=== PATIENT | female | born 1950 | race Caucasian/White ===

== ENCOUNTER 2023-10-07 13:41 | Emergency (ER) | payer MEDICARE, MEDICAID ==
[~2023-10-07] VITALS: Ht 154.9 cm; Wt 54.4 kg
[2023-10-07 13:52] VITALS: BP 122/85; PULSE 88; RESP 18; TEMP 98.1; O2SAT 98
[2023-10-07] MEDS ORDERED: IBUP-1842 PO (14:11)
[2023-10-07] MEDS ORDERED: AMOX875T3 PO (14:11)
== END 2023-10-07 14:15 | disposition home or self-care (01) ==
LOC: MED 13:41
DX: H66.91 Otitis media, unspecified, right ear (principal)
CPT/HCPCS: 99283

== ENCOUNTER 2023-10-09 14:51 | Emergency (ER) | payer MEDICARE, MEDICAID ==
[~2023-10-09] VITALS: Ht 147.3 cm; Wt 54.4 kg
[~2023-10-09 14:51] MED LIST: AMOX875T3 PO; IBUP-1842 PO
[2023-10-09 15:13] VITALS: BP 131/85; PULSE 88; RESP 16; TEMP 98.6; O2SAT 100
[2023-10-09] MEDS ORDERED: TRAM-748 PO (16:01)
== END 2023-10-09 16:12 | disposition home or self-care (01) ==
LOC: MED 15:18
DX: H66.91 Otitis media, unspecified, right ear (principal); E78.5 Hyperlipidemia, unspecified; R03.0 Elevated blood-pressure reading, without diagnosis of hypertension
CPT/HCPCS: 99283

== ENCOUNTER 2023-10-12 17:52 | Emergency (ER) | payer MEDICARE, MEDICAID ==
[~2023-10-12] VITALS: Ht 147.3 cm; Wt 53.5 kg
[~2023-10-12 17:52] MED LIST changes: +TRAM-748 PO
[2023-10-12 17:58] VITALS: BP 146/73; PULSE 80; RESP 18; TEMP 97.8; O2SAT 97
[2023-10-12] MEDS ORDERED: AMOX-1230 PO (18:36)
[2023-10-12 18:49] VITALS: BP 133/60; PULSE 69; RESP 18; TEMP 98.3; O2SAT 99
== END 2023-10-12 18:50 | disposition home or self-care (01) ==
LOC: MED 17:52
DX: H66.91 Otitis media, unspecified, right ear (principal); Z79.899 Other long term (current) drug therapy
CPT/HCPCS: 99283